=== PATIENT | male | born 1980 | race Caucasian/White ===

== ENCOUNTER 2021-09-05 01:04 | Emergency (ER) | payer BC ==
[2021-09-05] MEDS ORDERED: Ondansetron ODT 4 MG TAB ONE (03:08)
[2021-09-05] MEDS ORDERED: Ibuprofen 800 MG TAB ONE (03:08)
== END 2021-09-05 04:33 | disposition home or self-care (01) ==
LOC: ERS 01:04
DX: U07.1 COVID-19 (principal); I10 Essential (primary) hypertension; Z79.899 Other long term (current) drug therapy
CPT/HCPCS: 87804; 99283; Q0162; U0003; U0005

== ENCOUNTER 2023-12-30 09:30 | Outpatient (CLI) | payer BC ==
[~2023-12-30 09:30] MED LIST: Iopamidol 370 76% 100 ML VIAL ONE
== END 2023-12-30 09:31 | disposition home or self-care (01) ==
LOC: BICCT 09:30
PROVIDERS: ATTEND Family Medicine
DX: R63.4 Abnormal weight loss (principal); N28.89 Other specified disorders of kidney and ureter
CPT/HCPCS: 71260; 74177; Q9967

== ENCOUNTER 2024-02-01 08:31 | Outpatient (CLI) | payer BC | END 2024-02-01 08:32 | disposition home or self-care (01) | LOC: NM 08:31 | PROVIDERS: ATTEND Urology | DX: N28.89 Other specified disorders of kidney and ureter (principal) | CPT/HCPCS: 78306; A9503 ==